=== PATIENT | female | born 1950 | race Caucasian/White ===

== ENCOUNTER → 2023-10-23 14:55 | Outpatient (REF) | payer MEDICARE, BC, SELFPAY | LOC: WDC 14:55 | PROVIDERS: ATTENDING PHYSICIAN Obstetrics & Gynecology; FAMILY PHYSICIAN Family Medicine | DX: Z12.31 Encounter for screening mammogram for malignant neoplasm of breast (principal) | CPT/HCPCS: 77063; 77067 ==

== ENCOUNTER → 2024-10-28 11:06 | Outpatient (REF) | payer MEDICARE, BC, SELFPAY | LOC: WDC 11:06 | PROVIDERS: ATTENDING PHYSICIAN Family Medicine; REFERRING PHYSICIAN Obstetrics & Gynecology | DX: Z12.31 Encounter for screening mammogram for malignant neoplasm of breast (principal) | CPT/HCPCS: 77063; 77067 ==